=== PATIENT | female | born 1985 | race Caucasian/White ===

== ENCOUNTER → 2017-01-24 | Outpatient (CLI) | payer OTHER ==
[2017-01-24 10:39] LABS: BASOPHILS % (AUTO) 0 % (0-2); EOSINOPHILS % (AUTO) 0 % (0-4); MEAN CORPUSCULAR HGB CONC 34.1 g/dL (31.0-37.0); MEAN CORPUSCULAR VOLUME 91 FL (80-100); MEAN PLATELET VOLUME 8.9 FL (6.0-9.5); MONOCYTES # (AUTO) 0.3 X10^3; MONOCYTES % (AUTO) 5 % (3-11); NEUTROPHILS # (AUTO) 3.9 X10^3; NEUTROPHILS % (AUTO) 63 % (51-67); PLATELET COUNT 282 10^3uL (150-450)
[2017-01-24 11:29] LABS: ERYTHROCYTE SEDIMENTATION RT* 8 mm/hr (0-21)
== END ==
LOC: LAB 09:10 → EDSTATUS 09:45 → LAB 09:46
PROVIDERS: ATTEND Nurse Practitioner Family
DX: Z00.00 Encounter for general adult medical examination without abnormal findings (principal); M25.551 Pain in right hip
CPT/HCPCS: 36415; 81025; 85025; 85652; 86140

== ENCOUNTER → 2017-01-24 | Outpatient (CLI) | payer OTHER | LOC: RAD 09:43 | PROVIDERS: ATTEND Nurse Practitioner Family | DX: M25.551 Pain in right hip (principal) | CPT/HCPCS: 73502 ==

== ENCOUNTER 2017-03-24 07:30 | Outpatient (RCR) | payer OTHER ==
--- NOTE | 2017-02-11 11:57 | PT/OT/ST INITIAL EVALUATION ---
Department of Health and Human Services Form Approved Health Care Financing Administration OMB No. [id number] PLAN OF CARE/ASSESSMENT FOR OUTPATIENT REHABILITATION (Complete for Initial Claims Only) 1. PATIENT'S NAME Zenobia Jones 2. ACC # [id number] 3. [facility] [id number] 4. PROVIDER NO. NA 5. TYPE: PT 6. PRIOR HOSPITALIZATION None 7. PRIMARY DX Acute right hip pain 8. SECONDARY DX Right hip weakness 9. ONSET DATE 2 months ago 10. REFERRAL DATE 01/27/2017 11. SOC. DATE 02/04/2017 12. TIME OF EVAL 7:30 a.m. 12. REFERRING PHYSICIAN Juany Roldan APRN 13. CHARGES/UNITS Evaluation, ultrasound, iontophoresis, and therapeutic procedure. 14. G CODES 15. PRIOR LEVEL OF FUNCTION; PERTINENT HISTORY (Prior therapy results, reason for referral.) S: Description/mechanism of injury: The patient was referred to physical therapy by Juany Roldan APRN with the diagnosis of acute right hip pain. The patient reports that she has been experiencing pain for approximately 2 months at her hip. She notes that she notices it most when moving the leg out away from the body, getting in or out of a car, and when putting her shoes and socks on. The patient does not know of any injury or cause for the pain. She notes that it simply has not gone away. She does not have any pain sleeping. She states that she is able to ascend and descend stairs without pain. She does not have pain when turning on the leg. 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 Therapy History: Includes physical therapy for posterior hip pain. The patient states this pain is different and it is at her anterior hip. Pain level: Current pain rating is 6/10. Past medical history: The patient is a diabetic and takes insulin. Current medications: None. Activity level: Low Personal health rating: Excellent Patient's Goal: The patient's goal for physical therapy is to not have any more pain. 16. INITIAL ASSESSMENT/SAFETY PRECAUTIONS/MEDICAL COMPLICATIONS (Level of function at start of care. Be specific, use objective measures, list problems.) O: APPEARANCE AND OBSERVATION: The patient is a healthy looking 31-year-old female. In standing, she demonstrates equal hip height. Mild lumbar lordosis. Mild anterior pelvic tilt. PALPATION: The patient has tenderness to palpation at her right anterior hip just distal and inferior to the anterior superior iliac crest. Tenderness travels distally along her hip flexor tendon. No tenderness is noted at her lateral hip. The patient does describe the pain occasionally as being a snapping at the hip. The patient has pain when crossing her right leg. Also performed quadrant test at right hip that as positive. RANGE OF MOTION/FLEXIBILITY: Trunk range of motion was normal limits in all directions. Hamstring flexibility was 80 degrees bilaterally. Hip external rotation minimally limited at right hip, left normal limits. Internal rotation was only too neutral at right hip, left normal limits. STRENGTH: Right hip flexion 4/5 manual muscle test, left 5/5 manual muscle test. Hip abduction 4+/5 manual muscle test on the right, left 5/5 manual muscle test. Left internal rotation 4-/5 manual muscle test on the right, 5/5 manual muscle test. TODAY'S TREATMENT: Treatment included initial evaluation followed by ultrasound to right anterior hip flexor. The patient was then instructed on home exercise program for gentle flexibility and range of motion exercises to right hip. The treatment was ended with iontophoresis with dexamethasone to the right hip flexor. 17. INITIAL POC: (Specify procedures, modalities, short and termite control servicer goals) A: The patient demonstrates a right hip flexor possible sartorius strain. PROGNOSIS: The patient is a good candidate for physical therapy due to willingness and compliance with treatment. SHORT TERM GOALS: 1. The patient to be compliant with home exercise program in 1 week. 2. The patient to report 50% less pain with normal daily activities in 3 weeks. 3. The patient to demonstrate full flexibility at right hip without pain in 6 weeks. 4. The patient to demonstrate full strength at right hip with all motions and movements in 6 weeks. 5. The patient to report that she is able to perform normal daily activities without having pain at her right hip in 8 weeks. P: The patient will be seen 2 times a week over the next 8 weeks. Treatment to include modalities and manual therapy to decrease pain and inflammation. We will progress the patient with range of motion, flexibility, stabilization and light strengthening activities as tolerated. 18. FREQUENCY 2 times a week 19. DURATION 8 weeks 20. FUNCTIONAL LEVEL (End of claim period) 21. PHYSICIAN SIGNATURE ? ON FILE OR ENTER HERE: 22. DATE: I certify the need for these services furnished under this plan of care and if for partial hospitalization. 23. CERTIFICATION FROM THROUGH [id number]
[~2017-03-24 07:30] MED LIST: ACYC800T PO; AMOX500C5 PO; AZIT250T81 PO; BENZ-22 PO; BPR150TCR PO; IBUP-1096 PO; birth control pills; insulin pump SQ
== END 2017-04-07 12:04 | disposition home or self-care (01) ==
LOC: PT 07:30
PROVIDERS: ATTEND Nurse Practitioner Family
DX: M25.551 Pain in right hip (principal)